=== PATIENT | male | born 2005 | race Caucasian/White ===

== ENCOUNTER 2024-04-06 01:35 | Emergency (ER) | payer OTHER ==
[~2024-04-06] VITALS: Ht 185.4 cm; Wt 92.4 kg
[2024-04-06] MEDS ORDERED: prednisoLONE ACET 1% OPHTH SUSP 5ML OD STA (02:37)
[2024-04-06] MEDS: IBUPROFEN 600MG TAB PO ONE (03:30)
[2024-04-06] MEDS: oxyCODONE 5MG TAB PO ONE (03:30)
[2024-04-06] MEDS: TETRACAINE 0.5% OPHTH SOLN 4ML OD ONE (03:31)
[2024-04-06 03:57] VITALS: BP 123/81; TEMP 97.7; O2SAT 100
== END 2024-04-06 03:56 | disposition home or self-care (01) ==
LOC: M ED 01:35
DX: H44.131 Sympathetic uveitis, right eye (principal)